=== PATIENT | female | born 1970 | race Caucasian/White ===

== ENCOUNTER 2017-02-14 15:43 | Emergency (ER) | payer OTHER ==
[~2017-02-14 15:43] MED LIST: ANAFRANIL50 MG PO; ANEXSIA 7.5/3251 TA1 PO; BENTYL10 MG PO; CLOMID50 MG PO; ELIQUIS5 MG PO; FLEXERIL10 MG PO; HYDROCODON-ACE1 EACH PO; IBUPROFEN PO; IBUPROFEN800 MG PO; KEFLEX500 M1 PO; KEPPRA750 M1 PO; KEPPRA750 MG PO; KETOPROFEN PO; LEVOTHYROXINE75 MCG PO; LORTAB 5/500 TA1 TA1 PO; PHENERGAN25 MG PO; PROZAC PO; TOPAMAX PO; TYLOX 5/500 CAP1 CAP PO; VALIUM10 MG PO; VICODIN 5/500 T1 TAB PO; VITAMIN B COMP1 EACH PO; VOLTAREN75 MG PO; XARELTO10 MG; ZIPRASIDONE HCL40 MG PO
[2017-02-18 01:38] LABS: CHLAMYDIA TRACH Not Detected (Not Detected); N GONOR Not Detected (Not Detected)
== END 2017-02-14 16:40 | disposition home or self-care (01) ==
LOC: SED 15:43
PROVIDERS: Nurse Practitioner
DX: N89.8 Other specified noninflammatory disorders of vagina (principal); G40.909 Epilepsy, unspecified, not intractable, without status epilepticus; F42.9 Obsessive-compulsive disorder, unspecified; F17.210 Nicotine dependence, cigarettes, uncomplicated
CPT/HCPCS: 87210; 87491; 87591; 87808; 87905; 99284

== ENCOUNTER 2017-04-18 18:08 | Emergency (ER) | payer OTHER | END 2017-04-18 18:46 | disposition home or self-care (01) | LOC: SED 18:08 | DX: S00.33XA Contusion of nose, initial encounter (principal); I10 Essential (primary) hypertension; F17.200 Nicotine dependence, unspecified, uncomplicated; Z79.899 Other long term (current) drug therapy; W50.0XXA Accidental hit or strike by another person, initial encounter; Y92.009 Unspecified place in unspecified non-institutional (private) residence as the place of occurrence of the external cause | CPT/HCPCS: 99283 ==

== ENCOUNTER 2017-07-04 12:30 | Emergency (ER) | payer OTHER ==
[~2017-07-04] VITALS: Ht 162.6 cm; Wt 45.4 kg
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
[2017-07-04 13:45] LABS: URINE APPEARANCE SL CLOUDY; URINE BILIRUBIN NEG (NEG); URINE BLOOD 3+ (NEG); URINE COLOR YELLOW; URINE GLUCOSE NEG (NORM); URINE KETONE NEG (NEG); URINE LEUKOCYTE ESTERASE TRACE (NEG); URINE NITRATE NEG (NEG); URINE PH 6.5 (5-8); URINE PROTEIN NEG (NEG); URINE SPECIFIC GRAVITY 1.015 (1.003-1.035)
[2017-07-04 13:46] LABS: BASOPHIL# 0.1 X10e3 (0-0.3); BASOPHIL% 1.2 % (0-2.5); DIFF IND NO; EOSINOPHIL# 0.1 X10e3 (0-0.7); EOSINOPHIL% 1.1 % (0.0-7.0); HEMATOCRIT 42.4 % (35.0-45.0); HEMOGLOBIN 14.4 gm/dL (12.0-16.0); LYMPHOCYTE# 2.5 X10e3 (1.0-3.5); MEAN CELL VOLUME 95.8 FL (83-96); MEAN CORPUSCULAR HEMOGLOBIN 32.6 PG (28-34); MEAN PLATELET VOLUME 9.8 FL (6.5-11.5); MONOCYTE# 0.7 X10e3 (0-1.0); MONOCYTE% 8.6 % (3.0-12.0); NEUTROPHIL# 4.7 X10e3 (1.5-7.1); NEUTROPHIL% 58.1 % (40-75); PLATELET COUNT 224 X10e3 (140-420); RED BLOOD COUNT 4.42 X10e (3.90-5.30); RED CELL DISTRIBUTION WIDTH 13.9 % (11.0-15.5); WHITE BLOOD COUNT 8.1 X10e3 (4.0-10.5)
[2017-07-04 13:46] LABS: MICRO INDICATED? YES
[2017-07-04 14:02] LABS: BUN/CREATININE RATIO 24.44; CALCIUM SERUM 9.4 mg/dL (8.4-10.2); CREATININE SERUM 0.9 mg/dL (0.6-1.4); GLOM FILT RATE Estimated 77.8 mL/min (>60); POTASSIUM 3.3 mmol/L (3.5-5.1)
[2017-07-04 14:24] LABS: CULTURE INDICATED? NO; URINE BACTERIA NEG (NEG); URINE SQUAMOUS EPITHELIAL CELL MODERATE /[HPF]; URINE WBC 0-2 /[HPF] (0-5)
== END 2017-07-04 16:53 | disposition home or self-care (01) ==
LOC: SED 12:30
PROVIDERS: Physician Assistant
DX: S62.337A Displaced fracture of neck of fifth metacarpal bone, left hand, initial encounter for closed fracture (principal); S63.501A Unspecified sprain of right wrist, initial encounter; S20.211A Contusion of right front wall of thorax, initial encounter; R31.9 Hematuria, unspecified; N85.8 Other specified noninflammatory disorders of uterus; F17.210 Nicotine dependence, cigarettes, uncomplicated; I10 Essential (primary) hypertension; Z79.899 Other long term (current) drug therapy; Y08.89XA Assault by other specified means, initial encounter; Y92.009 Unspecified place in unspecified non-institutional (private) residence as the place of occurrence of the external cause
CPT/HCPCS: 29125; 29280; 36415; 71101; 73110; 73130; 74177; 80048; 81003; 84703; 85025; 96361; 96374; 99284; J2405; Q9967

== ENCOUNTER 2017-07-13 14:03 | Emergency (ER) | payer OTHER | END 2017-07-13 14:44 | disposition home or self-care (01) | LOC: SED 14:03 | DX: R31.29 Other microscopic hematuria (principal); F17.200 Nicotine dependence, unspecified, uncomplicated; Z79.899 Other long term (current) drug therapy | CPT/HCPCS: 99283 ==